=== PATIENT | male | born 1950 ===

== ENCOUNTER 2024-03-06 07:09 | Outpatient (OUT) | payer MEDICARE, SELFPAY | END 2024-03-06 07:10 | disposition home or self-care (01) | LOC: PST 07:10 | PROVIDERS: Visit Provider Urology | DX: Z01.818 Encounter for other preprocedural examination (principal); N48.89 Other specified disorders of penis; R33.9 Retention of urine, unspecified; I10 Essential (primary) hypertension; E11.9 Type 2 diabetes mellitus without complications; Z79.01 Long term (current) use of anticoagulants ==

== ENCOUNTER 2024-03-14 10:01 | Day surgery (SDC) | payer MEDICARE, SELFPAY ==
[2024-03-14] VITALS (16 sets, daily range): BP systolic 136–176; BP diastolic 64–103; PULSE 75–81; TEMP 35.9–36.3; O2SAT 97–100; BMI 63.4
[2024-03-14 10:57] LABS: Glucometer 73 mg/dL (74-106)
[2024-03-14] MEDS: CIPROFLOXACIN IN 5 % DEXTROSE 400 MG/200 ML PIGGYBACK 200 MG IV (11:19)
[2024-03-14] MEDS: LACTATED RINGER'S SOLUTION 1,000 ML 50 ML IV (11:19)
[2024-03-14 11:35] LABS: Glucometer 80 mg/dL (74-106)
[2024-03-14] MEDS: LIDOCAINE HCL 2% 400 MG/20 ML MDV INJ (12:23)
[2024-03-14 13:04] LABS: Glucometer 84 mg/dL (74-106)
--- NOTE | 2024-03-14 13:06 | PM.URSON ---
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 Post-op Diagnosis: same as pre-op Procedures performed: 1. Cystoscopy. 2. Percutaneous placement of 24 Lithuanian suprapubic tube into the bladder. Anesthesia: General-LMA Primary Surgeon: Josh Mir Complications: None Estimated blood loss (mL): 5 Specimens: None Drains: 24 Lithuanian suprapubic tube catheter in the bladder Indications for Procedures: This gentleman has chronic urinary retention for which he has had a chronic urethral Santana. He has developed rather significant urethral erosion from tension on the Santana catheter producing pressure necrosis. He now presents for a suprapubic tube placement so as to bypass any further urethral damage. He has signed an informed consent for cystoscopy and suprapubic tube placement after all risks were explained. Detailed description of Procedure: The patient was brought to the operating room and placed on the operating room table in the supine position. SCDs were placed on the lower extremities and turned on and functioning during the entire case. Timeout was done by all parties in the room. We all agreed upon the patient's identification and the planned procedures for this patient. Genn. anesthesia was then administered. The patient was then repositioned into the modified dorsal lithotomy position. All pressure points were satisfactorily padded. Genitalia and abdomen were sterilely prepped and draped in usual fashion. I started by passing a flexible cystoscope per urethra and into the bladder. After the bladder was distended panendoscopy revealed no evidence of any bladder tumors or stones. I then palpated the dome of the bladder midway between the pubic bone and umbilicus. I then infiltrated 1% plain lidocaine in the skin over this spot and then deeply to the bladder. I then used a 15 blade scalpel and made a 2 cm incision over this spot. Hemostat was used to bluntly dissect down to the bladder. I then passed the Lowsley tractor through the urethra and into the bladder. It was then pressed up to the dome of the bladder which corresponded to the suprapubic incision that was previously made. A Bovie cautery was then used to cut down to the Lowsley. This then allowed the Lowsley to come out of the bladder and out of the suprapubic incision. I then used the jaws of the Lowsley to grasp the new 24 Lithuanian Santana catheter. I then pulled the catheter into the bladder and then released the jaws and remove the Lowsley. 30 cc of fluid was placed in the balloon. The catheter irrigated fine. I then passed the cystoscope back in the bladder and evaluated the insertion site. It was in fact exactly at the dome as desired. There was no bleeding. The scope was then removed. After the bladder was drained through the catheter we clamped to the catheter with a hemostat. I then closed the incision with 3-0 Vicryl in a running fashion for the deep layer. I then used 5-0 nylon in an interrupted fashion for the skin. The catheter was then taped to the abdomen in a curvilinear fashion. A leg bag was attached. It drained clear. A sterile dressing was placed over the incision. He was then transferred to a [facility] bed and wheeled to PACU in stable condition. Urinary Catheter Management Urinary Catheter Management Urethral: Cath placed during this visit: no Suprapubic: Cath placed during this visit: no
[2024-03-14] MEDS: HYDROMORPHONE HCL 0.5 MG/0.5 ML SYRINGE IV ×4 (13:29→13:52)
--- NOTE | 2024-03-14 13:48 | XR_ITS ---
[address] [address] Patient Name: ANKUSH CASANOVA MRN: [id number] date: 1950 Sex: M Assigned Patient Location: [facility] Current Patient Location: [facility] Accession/Order Number: [id number] Exam Date: 03/14/2024 14:25 Report Date: 03/14/2024 15:08 At the request of: ABDIAZIZ TAM Procedure: XR hip RT 2V w/ pelvis IMAGES REVIEWED: XR hip RT 2V w/ pelvis COMPARISON: None available. CLINICAL INDICATION: RIGHT HIP PAIN FINDINGS/IMPRESSION: No radiographic evidence of acute osseous abnormality of the right hip/pelvis. Osteopenia. Mild-moderate degenerative change of bilateral hips. Lower lumbar facet arthropathy. Right iliac vascular stents. Electronically authenticated by: ALTON BETANCOURT Date: 03/14/2024 15:08
== END 2024-03-14 15:30 | disposition home or self-care (01) ==
PROVIDERS: PCP Family Medicine; Visit Provider Urology
PROC: (CPT 51102; principal; 2024-03-14 11:15)
DX: R33.9 Retention of urine, unspecified (principal); N48.89 Other specified disorders of penis; E78.5 Hyperlipidemia, unspecified; K21.9 Gastro-esophageal reflux disease without esophagitis; I73.9 Peripheral vascular disease, unspecified; I10 Essential (primary) hypertension; Z79.01 Long term (current) use of anticoagulants; E11.40 Type 2 diabetes mellitus with diabetic neuropathy, unspecified; E11.49 Type 2 diabetes mellitus with other diabetic neurological complication; Z79.82 Long term (current) use of aspirin; Z79.899 Other long term (current) drug therapy; Z79.4 Long term (current) use of insulin
CPT/HCPCS: 51102; 36415; 73502; 82948; J1170; J2704